=== PATIENT | female | born 1950 | race Caucasian/White ===

== ENCOUNTER 2020-09-28 23:45 | Inpatient (IN) ==
[2020-09-28] MEDS ORDERED: IOPAMIDOL 100 ML BOTTLE IV ONE (23:46)
[2020-09-29] MEDS ORDERED: 0.9 % SODIUM CHLORIDE 1,000 ML IV ONE (00:15)
[2020-09-29] MEDS ORDERED: ONDANSETRON 4 MG/2 ML VIAL IV ONE ×2 (00:15→07:31)
[2020-09-29] MEDS ORDERED: morphine 2 MG/ML VIAL IV PRN (00:15)
--- NOTE | 2020-09-29 00:19 | Emergency Department Note ---
Abdominal Pain HPI General Chief Complaint: Nausea/Vomiting/Diarrhea Stated Complaint: N/V/D Time Seen by Provider: 09/29/20 00:04 Source: patient, family ( at bedside) and RN notes reviewed Mode of arrival: ambulatory Limitations: no limitations History of Present Illness HPI Narrative: Narrative: 70-year-old female complaining of abdominal pain with nausea and vomiting. Started approximately 10 AM this morning she did some heavy lifting felt a pop in mass in her periumbilical area in her stomach. She thought it would get better throughout the course of the day and is gotten worse. Complains of naus ea and vomiting denies any hematemesis or coffee-ground emesis denies any bright red blood per rectum black tarry stools or diarrhea she does have constipation denies any hematuria dysuria frequency. MD Complaint: abdominal pain Onset (ago): hour(s) (12) Consistency: constant Location: periumbilical Severity: moderate Quality: cramping Radiation: back Migration to: no migration Improves with: vomiting Worsens with: eating and movement Associated symptoms: Reports nausea, chills, constipation and anorexia; Denies diarrhea, fever, dysuria, hematemesis, hematochezia, melena, hematuria and syncope Treatments prior to arrival: prescription analgesics Review of Systems ROS ROS Narrative: Narrative: [facility] Narrative Patient History Narrative: Narrative: Medical/Surgical/Family History All Active Problems (Updated 09/29/20 @ 02:24 by Familia Brito MD) Incarcerated hernia (Acute) Social History Smoking Status: Never smoker Exam Narrative Narrative: Narrative: General Limitations: no limitations Course Vital Signs Vital signs: Vital Signs Temperature 97.3 F 09/28/20 23:45 Pulse Rate 77 09/28/20 23:45 Respiratory Rate 15 09/28/20 23:45 Blood Pressure 175/92 09/28/20 23:45 Pulse Oximetry (%) 97 09/28/20 23:45 Temperature 97.3 F 09/28/20 23:45 Pulse Rate 71 09/29/20 01:10 Respiratory Rate 15 09/28/20 23:45 Blood Pressure 148/65 09/29/20 02:27 Pulse Oximetry (%) 95 09/29/20 01:10 [facility] MDM Narrative Medical decision making narrative: Narrative: Incarcerated ventral hernia on CT scan with elevated white count patient is to Dr. Teja Canseco. Differential Diagnosis Differential Diagnosis: Ventral hernia, umbilical hernia, mass. Medical Records Medical records reviewed: Yes I reviewed the patient's medical records. Lab Data Lab results reviewed: Yes I reviewed the patient's lab results. Result diagrams: 09/29/20 00:22 09/29/20 00:22 Labs: Lab Results 09/29/20 09/29/20 Range/Units 00:22 00:22 WBC 14.9 H (4.5-11.0) K/mcL RBC 5.41 H (4.00-5.20) M/mcL Hgb 16.6 H (12.0-15.0) g/dL Hct 49.8 H (36.0-48.0) % MCV 92.1 (80.0-100.0) fL MCH 30.7 (26.0-34.0) pg MCHC 33.3 (31.0-36.0) g/dL RDW 12.8 (11.5-14.5) % Plt Count 209 (140-440) K/mcL MPV 11.6 H (7.4-10.4) fL Neut % (Auto) 88.0 H (38.0-78.0) % Lymph % (Auto) 6.8 L (15.0-49.0) % [place] % (Auto) 5.0 (1.0-12.0) % Eos % (Auto) 0 (0.0-7.0) % Baso % (Auto) 0.2 (0.0-2.0) % Lymph # (Auto) 1.01 L (1.50-4.80) K/mcL [place] # (Auto) 0.74 (0.10-0.90) K/mcL Eos # (Auto) 0 (0.00-0.70) K/mcL Baso # (Auto) 0.03 (0.00-0.20) K/mcL Absolute Neutrophils 13.11 H (1.80-8.00) K/mcL Sodium 139 (133-145) mmol/L Potassium 3.4 (3.3-5.1) mmol/L Chloride 98 (96-108) mmol/L Carbon Dioxide 22 (22-30) mmol/L Anion Gap 19.0 H (8.0-16.0) BUN 22 (8-23) mg/dL Creatinine 0.7 (0.6-1.1) mg/dL POC Creatinine 0.6 (0.6-1.2) mg/dL GFR Calculation 88 Glucose 199 H (70-105) mg/dL Calcium 10.2 (8.6-10.4) mg/dL Total Bilirubin 1.2 H (0.1-1.0) mg/dL AST 24 (<32) U/L ALT 21 (<40) U/L Alkaline Phosphatase 100 (39-117) U/L Total Protein 7.6 (5.9-8.4) gm/dL Albumin 4.5 (3.2-5.2) gm/dL Globulin 3.1 (2.2-3.7) gm/dL Albumin/Globulin Ratio 1.5 (1.0-2.3) Lipase 11 (7-60) U/L Radiology Data Radiology results reviewed: Yes I reviewed the patient's radiology results. Radiology results narrative: Abdominal CT with a ventral hernia chest x-ray EKG Data EKG #1: EKG attestation: Yes I reviewed and interpreted this EKG. EKG shows normal: sinus rhythm Rate: normal (61) Rhythm: NSR Brooks/QRS: left axis deviation QRS morphology: Present poor R-wave progression Interpretation: nonspecific ST-T wave changes Pulse Oximetry Data Pulse Ox %: 95 Interpretation: 95% on room air and within normal limits. Discharge Plan Patient/Caregiver Discharge Instructions Pt seen by SYRUP MAKER/PA only: No Clinical Impression: Incarcerated hernia Patient Disposition: Xfer As Inpt ([facility]) Condition: Fair Follow up with: Angela Prado MD [Primary Care Provider] -
[2020-09-29 00:28] LABS: POC Creatinine 0.6 mg/dL (0.6-1.2)
[2020-09-29 00:49] LABS: Basophils # (Auto) 0.03 K/mcL (0.00-0.20); Basophils % (Auto) 0.2 % (0.0-2.0); Eosinophils # (Auto) 0 K/mcL (0.00-0.70); Eosinophils % (Auto) 0 % (0.0-7.0); Hematocrit 49.8 % (36.0-48.0); Hemoglobin 16.6 g/dL (12.0-15.0); Lymphocytes # (Auto) 1.01 K/mcL (1.50-4.80); Lymphocytes % (Auto) 6.8 % (15.0-49.0); Mean Cell Volume 92.1 fL (80.0-100.0); Mean Corpuscular HGB Conc 33.3 g/dL (31.0-36.0); Mean Platelet Volume 11.6 fL (7.4-10.4); Monocytes # (Auto) 0.74 K/mcL (0.10-0.90); Platelet Count 209 K/mcL (140-440); RBC 5.41 M/mcL (4.00-5.20); Red Cell Distribution Width 12.8 % (11.5-14.5); WBC 14.9 K/mcL (4.5-11.0)
[2020-09-29 01:12] LABS: ALT/SGPT 21 U/L (<40); AST/SGOT 24 U/L (<32); Albumin 4.5 gm/dL (3.2-5.2); Albumin/Globulin Ratio 1.5 (1.0-2.3); Alkaline Phosphatase 100 U/L (39-117); Bilirubin,Total 1.2 mg/dL (0.1-1.0); Blood Urea Nitrogen 22 mg/dL (8-23); Calcium 10.2 mg/dL (8.6-10.4); Carbon Dioxide 22 mmol/L (22-30); Chloride 98 mmol/L (96-108); Globulin 3.1 gm/dL (2.2-3.7); Glomerular Filtration Rate 88; Glucose 199 mg/dL (70-105)
[2020-09-29] MEDS ORDERED: HYDROmorphone 0.5 MG/0.5 ML SYRINGE IV ONE (02:08)
[2020-09-29] MEDS ORDERED: PROCHLORPERAZINE 10 MG/2 ML VIAL IV ONE (02:09)
[2020-09-29] MEDS ORDERED: diphenhydrAMINE 50 MG/ML VIAL IV ONE (02:09)
[2020-09-29] MEDS ORDERED: CEFEPIME 2 GM VIAL IV ONE (02:18)
[2020-09-29] MEDS ORDERED: HYDROmorphone 0.5 MG/0.5 ML SYRINGE IV PRN ×2 (02:18→14:45)
[2020-09-29] MEDS ORDERED: ONDANSETRON 4 MG/2 ML VIAL IV PRN (02:18)
[2020-09-29] MEDS: 0.9 % SODIUM CHLORIDE 1,000 ML IV SCH ×4 (03:00→22:41)
[2020-09-29 05:16] LABS: POC INR 1.1 (0.8-1.2); POC Pro Time 12.7 sec (11.9-14.5)
--- NOTE | 2020-09-29 06:00 | XRay Report ---
INDICATION: pre op. NG tube placement TECHNIQUE: AP portable supine chest x-ray COMPARISON: Previous chest x-ray dated 11/27/2009 FINDINGS:Esophagogastric tube with its tip in the stomach. Lungs:Bilateral pulmonary parenchymal infiltrates. This may be partially due to shallow inspiration and supine positioning. Interstitial pneumonia is possible. Clinical correlation follow-up radiographs recommended. Heart, vascular:No significant cardiomegaly. Pulmonary vascularity is normal. No pulmonary edema or pulmonary congestion Mediastinum, esperanza:No mediastinal widening. No hilar mass Pleura:There is elevation of the right hemidiaphragm. This is a new finding since previous examination. Skeletal:Negative. IMPRESSION: 1. Esophagogastric tube in stomach 2. Possible bilateral pulmonary parenchymal infiltrates. Follow-up chest x-ray recommended Interpreted and Authenticated by: Donta Grant 09/29/20
--- NOTE | 2020-09-29 07:10 | Cat Scan Report ---
INDICATION: Per umbilical mass, abd pain COMPARISON: None. TECHNIQUE: Axial images were obtained through the abdomen and pelvis. Sagittally and coronally reformatted images. 80 mL Isovue 370 injected intravenously. Oral contrast material was not administered FINDINGS: Examination was initially interpreted by [facility] Lung bases:Mild right basilar atelectasis. No parenchymal consolidation. No focal mass. There is no pleural effusion or pericardial effusion. There is extensive coronary artery calcification. Liver:Negative. No focal intrahepatic mass. No focal abnormality. Liver contour is smooth. No evidence for cirrhosis Gallbladder, bilary:No calcified gallstones. No gallbladder wall thickening. No dilated intra or extrahepatic bile ducts. Spleen:No splenomegaly. Normal enhancement of splenic and portal veins. Pancreas:No pancreatic mass. No peripancreatic abnormality Adrenal glands:Negative Kidneys, ureters, bladder:No solid renal mass. No hydronephrosis. No obstructing calculi. There is no hydroureter. No ureteral stone No bladder calculi or detectable mass Gastrointestinal:No detectable colonic mass. There is no diverticulitis. There is sigmoid diverticulosis. The colon is relatively collapsed but does contain stool. Mechanical small bowel obstruction with dilated jejunum. Approximately 3.0 cm in cross-sectional diameter and is fluid-filled there are 2 supraumbilical midline abdominal wall hernias. The more cephalad hernia measures 1.6 x 2.5 cm in diameter. There is mesenteric fat within the hernia. There is mild stranding. This does not contain bowel. The more caudal hernia is immediately adjacent to the other hernia. This hernia defect measures 2.5 x 1.6 cm. There is herniated and obstructed small bowel. There is stranding and mild fluid. Small bowel wall appears edematous but enhances normally without evidence for infarction. Appearance is consistent with incarcerated, mechanical small bowel obstruction. Appendix: The appendix is negative Vascular:There is atherosclerotic calcification. No abdominal aortic aneurysm. There is calcification at the origins of the superior mesenteric artery and celiac trunk. There is no significant stenosis Lymphatic:No retroperitoneal or mesenteric adenopathy Mesentery, peritoneum: No free intraperitoneal fluid. There is no pneumoperitoneum. No intra-abdominal abscess. Reproductive:Uterus is anteflexed. No adnexal mass Musculoskeletal:Severe multilevel degenerative disc disease. There is degenerative type scoliosis. No lumbar compression fracture. Sacrum and pelvis are negative No abdominal wall or inguinal hernia IMPRESSION: 1. Midline anterior abdominal wall hernias as above 2. Mechanical small bowel obstruction with incarcerated small bowel. There is fluid within the hernia sac. There is small bowel edema within the hernia sac but small bowel wall appears perfused. 3. Severe atherosclerotic disease including coronary artery calcification. No abdominal aortic aneurysm 4. Severe multilevel degenerative disc disease 5. Diverticulosis without diverticulitis The exam was performed using radiation dose optimization techniques including, but not limited to, automated exposure control, adjustment of the mA and/or kV according to patient size and use of iterative reconstruction technique. Interpreted and Authenticated by: Donta Grant 09/29/20
--- NOTE | 2020-09-29 07:37 | Emergency Department Note ---
Nausea/Vomiting/Diarrhea HPI General Chief complaint: Nausea/Vomiting/Diarrhea Stated complaint: N/V/D Time Seen by Provider: 09/29/20 00:04 Source: patient, family ( at bedside) and RN notes reviewed Mode of arrival: ambulatory Limitations: no limitations History of Present Illness HPI Narrative: Narrative: Severity: moderate Related Data Home Medications Medication Instructions Recorded Confirmed calcium carbonate-vitamin D2 1 tab PO DAILY 09/29/20 09/29/20 [Calcium + Vitamin D] cyanocobalamin (vitamin B-12) 500 mcg PO DAILY 09/29/20 09/29/20 [Vitamin B-12] ibuprofen 200 mg PO Q6H PRN 09/29/20 09/29/20 losartan 25 mg PO QDAY 09/29/20 09/29/20 pediatric multivitamin no.76 2 tab PO DAILY 09/29/20 09/29/20 [Flintstones Complete] Allergies Allergy/AdvReac Type Severity Reaction Status Date / Time No Known Drug Allergies Allergy Verified 09/29/20 03:50 Review of Systems ROS ROS Narrative: Narrative: PFSH Narrative Patient History Narrative: Narrative: Medical/Surgical/Family History All Active Problems (Updated 09/29/20 @ 09:40 by Enrrique Canseco MD) Complete obstruction of small intestine (Acute) Incarcerated incisional hernia (Acute) Hypertension (Acute) Incarcerated hernia (Acute) Surgical History (Updated 09/29/20 @ 09:37 by Enrrique Canseco MD) History of total knee arthroplasty Social History Smoking Status: Never smoker Exam Narrative Narrative: Narrative: General Limitations: no limitations Course Vital Signs Vital signs: Vital Signs Temperature 97.3 F 09/28/20 23:45 Pulse Rate 77 09/28/20 23:45 Respiratory Rate 15 09/28/20 23:45 Blood Pressure 175/92 09/28/20 23:45 Pulse Oximetry (%) 97 09/28/20 23:45 Temperature 97.3 F 09/29/20 11:06 Pulse Rate 95 H 09/29/20 11:06 Respiratory Rate 15 09/29/20 11:06 Blood Pressure 154/72 09/29/20 11:06 Pulse Oximetry (%) 94 09/29/20 11:06 [facility] MDM Narrative Medical decision making narrative: I assumed care from Dr. Brito at the change of shift. I evaluated the patient in person at 7:35 AM. She is complaining of increasing nausea and pain. We will administer Zofran for nausea. She declined any pain medication at this time. I explained the plan for surgical consultation in the emergency department and the patient is agreeable. We will continue to monitor Lab Data Result diagrams: 09/29/20 00:22 09/29/20 00:22 Labs: Lab Results 09/29/20 09/29/20 09/29/20 Range/Units : 00:22 05:11 WBC 14.9 H (4.5-11.0) K/mcL RBC 5.41 H (4.00-5.20) M/mcL Hgb 16.6 H (12.0-15.0) g/dL Hct 49.8 H (36.0-48.0) % MCV 92.1 (80.0-100.0) fL MCH 30.7 (26.0-34.0) pg MCHC 33.3 (31.0-36.0) g/dL RDW 12.8 (11.5-14.5) % Plt Count 209 (140-440) K/mcL MPV 11.6 H (7.4-10.4) fL Neut % (Auto) 88.0 H (38.0-78.0) % Lymph % (Auto) 6.8 L (15.0-49.0) % [place] % (Auto) 5.0 (1.0-12.0) % Eos % (Auto) 0 (0.0-7.0) % Baso % (Auto) 0.2 (0.0-2.0) % Lymph # (Auto) 1.01 L (1.50-4.80) K/mcL [place] # (Auto) 0.74 (0.10-0.90) K/mcL Eos # (Auto) 0 (0.00-0.70) K/mcL Baso # (Auto) 0.03 (0.00-0.20) K/mcL Absolute Neutrophils 13.11 H (1.80-8.00) K/mcL POC PT 12.7 (11.9-14.5) sec POC INR 1.1 (0.8-1.2) Sodium 139 (133-145) mmol/L Potassium 3.4 (3.3-5.1) mmol/L Chloride 98 (96-108) mmol/L Carbon Dioxide 22 (22-30) mmol/L Anion Gap 19.0 H (8.0-16.0) BUN 22 (8-23) mg/dL Creatinine 0.7 (0.6-1.1) mg/dL POC Creatinine 0.6 (0.6-1.2) mg/dL GFR Calculation 88 Glucose 199 H (70-105) mg/dL Calcium 10.2 (8.6-10.4) mg/dL Total Bilirubin 1.2 H (0.1-1.0) mg/dL AST 24 (<32) U/L ALT 21 (<40) U/L Alkaline Phosphatase 100 (39-117) U/L Total Protein 7.6 (5.9-8.4) gm/dL Albumin 4.5 (3.2-5.2) gm/dL Globulin 3.1 (2.2-3.7) gm/dL Albumin/Globulin Ratio 1.5 (1.0-2.3) Lipase 11 (7-60) U/L ED POC Tests ED POC Tests: NANCY - SARS Antigen Negative Discharge Plan Patient/Caregiver Discharge Instructions Pt seen by COMMUNITY INTEGRATION SPECIALIST/PA only: No Clinical Impression: Incarcerated hernia Patient Disposition: Xfer As Inpt ([facility]) Condition: Fair Discharge Date/Time: 09/29/20 11:12
--- NOTE | 2020-09-29 09:41 | General Surg History&Physical ---
HPI History of Present Illness Patient information: Note initiated : 09/29/20 at 9:31 am Service Date, if different from initiated Date: [] Patient: Shanelle Cai a 70 y/o F admitted on for N/V/D. Chief Complaint: [] Chief complaint: Incarcerated incisional hernia with small bowel obstruction History of present illness: Ms. Cai is a 70 year old F admitted with mid upper abdominal pain with nausea and vomiting. 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 She had new onset of pain in her mid abdomen around one of her port sites about 11 AM yesterday. She has had progressive pain since that time and has had episodic nausea and vomiting. She presented to the emergency room early this morning with these complaints. She had CT of the abdomen which shows an incisional hernia in the upper midline with incarcerated bowel and fat. She has been treated with nasogastric decompression and has mild relief of discomfort but has not had any resolution of the nausea or vomiting. Patient is counseled for exploratory laparotomy with reduction incarcerated bowel and incisional hernia repair. Review of Systems All systems: reviewed and no additional remarkable complaints except as stated Musculoskeletal Musculoskeletal: Present arthralgias and joint swelling PFSH PFSH All Active Problems (Updated 09/29/20 @ 09:40 by Enrrique Canseco MD) Complete obstruction of small intestine (Acute) Incarcerated incisional hernia (Acute) Hypertension (Acute) Incarcerated hernia (Acute) Surgical History (Updated 09/29/20 @ 09:37 by Enrrique Canseco MD) History of total knee arthroplasty MEDS/ALLERGIES Home Medications and Allergies Home Medications Medication Instructions Recorded Confirmed Type calcium carbonate-vitamin D2 1 tab PO DAILY 09/29/20 09/29/20 History [Calcium + Vitamin D] cyanocobalamin (vitamin B-12) 500 mcg PO DAILY 09/29/20 09/29/20 History [Vitamin B-12] ibuprofen 200 mg PO Q6H PRN 09/29/20 09/29/20 History losartan 25 mg PO QDAY 09/29/20 09/29/20 History pediatric multivitamin no.76 2 tab PO DAILY 09/29/20 09/29/20 History [Flintstones Complete] Allergies Allergy/AdvReac Type Severity Reaction Status Date / Time No Known Drug Allergies Allergy Verified 09/29/20 03:50 Physical Examination Vital Signs Vital signs: Temp Pulse Resp BP Pulse Ox 97.3 F 85 15 154/79 94 09/28/20 23:45 09/29/20 09:08 09/28/20 23:45 09/29/20 09:08 09/29/20 09:08 General physical appearance General physical exam: well developed, well nourished, moderate pain and obese Eyes Eye exam: PERRL and normal ocular movement ENT ENT exam: normal mucosa and no congestion Head Head exam IM: Present atraumatic, normal inspection and normocephalic Neck Neck exam: no masses, trachea midline, no lymphadenopathy and no venous distension Cardiovascular Cardiovascular exam IM: Present normal rate and rhythm, RRR, +S1, +S2 and tachycardia; Absent JVD Respiratory Respiratory exam: normal expansion, normal respiratory effort and clear to auscultation Abdomen Abdomen: Present soft and tender (Tenderness in the supraumbilical midline with tender mass) Hernia: Present incisional Integumentary Integumentary: Present no rash, no growths and no abnormal pigmentation Neurologic Neurologic: Present normal coordination and normal sensation Musculoskeletal Musculoskeletal: Present normal gait and normal posture Psychiatric Psychiatric: Present oriented to time, oriented to person, oriented to place, speech is normal and memory intact Results Labs Result diagrams: 09/29/20 00:22 09/29/20 00:22 Labs: Abnormal lab results 09/29/20 09/29/20 Range/Units 00:22 00:22 WBC 14.9 H (4.5-11.0) K/mcL RBC 5.41 H (4.00-5.20) M/mcL Hgb 16.6 H (12.0-15.0) g/dL Hct 49.8 H (36.0-48.0) % MPV 11.6 H (7.4-10.4) fL Neut % (Auto) 88.0 H (38.0-78.0) % Lymph % (Auto) 6.8 L (15.0-49.0) % Lymph # (Auto) 1.01 L (1.50-4.80) K/mcL Absolute Neutrophils 13.11 H (1.80-8.00) K/mcL Anion Gap 19.0 H (8.0-16.0) Glucose 199 H (70-105) mg/dL Total Bilirubin 1.2 H (0.1-1.0) mg/dL Diabetes panel 09/29/20 Range/Units 00:22 Sodium 139 (133-145) mmol/L Potassium 3.4 (3.3-5.1) mmol/L Chloride 98 (96-108) mmol/L Carbon Dioxide 22 (22-30) mmol/L BUN 22 (8-23) mg/dL Creatinine 0.7 (0.6-1.1) mg/dL Glucose 199 H (70-105) mg/dL Calcium 10.2 (8.6-10.4) mg/dL AST 24 (<32) U/L ALT 21 (<40) U/L Alkaline Phosphatase 100 (39-117) U/L Total Protein 7.6 (5.9-8.4) gm/dL Albumin 4.5 (3.2-5.2) gm/dL Calcium panel 09/29/20 Range/Units 00:22 Calcium 10.2 (8.6-10.4) mg/dL Albumin 4.5 (3.2-5.2) gm/dL Pituitary panel 09/29/20 Range/Units 00:22 Sodium 139 (133-145) mmol/L Potassium 3.4 (3.3-5.1) mmol/L Chloride 98 (96-108) mmol/L Carbon Dioxide 22 (22-30) mmol/L BUN 22 (8-23) mg/dL Creatinine 0.7 (0.6-1.1) mg/dL Glucose 199 H (70-105) mg/dL Calcium 10.2 (8.6-10.4) mg/dL Adrenal panel 09/29/20 Range/Units 00:22 Sodium 139 (133-145) mmol/L Potassium 3.4 (3.3-5.1) mmol/L Chloride 98 (96-108) mmol/L Carbon Dioxide 22 (22-30) mmol/L BUN 22 (8-23) mg/dL Creatinine 0.7 (0.6-1.1) mg/dL Glucose 199 H (70-105) mg/dL Calcium 10.2 (8.6-10.4) mg/dL Total Bilirubin 1.2 H (0.1-1.0) mg/dL AST 24 (<32) U/L ALT 21 (<40) U/L Alkaline Phosphatase 100 (39-117) U/L Total Protein 7.6 (5.9-8.4) gm/dL Albumin 4.5 (3.2-5.2) gm/dL All other labs normal. A/P Assessment and plan (1) Incarcerated incisional hernia: Status: Acute (2) Complete obstruction of small intestine: Status: Acute (3) Hypertension: Status: Acute Narrative A/P Narrative: Patient is being hydrated She has received antibiotics She is counseled for laparotomy with reduction of bowel obstruction and repair of incisional hernia She is having nasogastric decompression Time Spent With Patient Time: Total time spent is greater than 50% in coordination of care (as documented) at patient's floor/unit and/or counseling patient:
[2020-09-29] MEDS ORDERED: CEFEPIME 2 GM VIAL IV SCH (10:00)
[2020-09-29] MEDS ORDERED: fentaNYL 100 MCG/2 ML VIAL IV ONE (13:33)
[2020-09-29] MEDS ORDERED: PROPOFOL 200 MG/20 ML VIAL IV ONE (13:33)
[2020-09-29] MEDS ORDERED: LIDOCAINE HCL/PF 100 MG/5 ML SYRINGE IV ONE (13:33)
[2020-09-29] MEDS ORDERED: GLYCOPYRROLATE 0.2 MG/ML VIAL IV ONE (13:33)
[2020-09-29] MEDS ORDERED: ONDANSETRON 4 MG/2 ML VIAL ONE (13:33)
[2020-09-29] MEDS ORDERED: DEXAMETHASONE 10 MG/ML VIAL ONE (13:33)
[2020-09-29] MEDS ORDERED: PHENYLephrine 1 MG/10 ML SYRINGE (ANEST) ONE (13:33)
[2020-09-29] MEDS ORDERED: SUGAMMADEX SODIUM 200 MG/2 ML VIAL IV ONE (13:33)
[2020-09-29] MEDS ORDERED: KETAMINE 50 MG/ML Syringe (ANEST) ONE (13:33)
[2020-09-29] MEDS ORDERED: SUCCINYLCHOLINE 20 MG/ML ML IV ONE (13:33)
[2020-09-29] MEDS ORDERED: MAGNESIUM SULFATE 2 GM/50 ML BAG IV ONE (13:33)
[2020-09-29] MEDS ORDERED: HYDROmorphone 1 MG/ML SYRINGE ONE (13:33)
--- NOTE | 2020-09-29 13:44 | EKG ---
[facility] Test Date: 2020-09-29 Pat Name: Shanelle Cai Department: ED Room: Gender: Female [employer] Supervisor: : 1950 Requested By: Familia Brito Order Number: [id number] Reading MD: Willie Contreras M.D. Measurements Intervals [place] Rate: 61 P: 12 MD: 174 QRS: -31 QRSD: 101 T: 4 QT: 419 QTc: 422 Interpretive Statements Sinus rhythm borderline Left axis deviation Abnormal R-wave progression, late transition NO PRIOR TRACING FOR COMPARISON OTHERWISE NORMAL ECG Electronically Signed On 09-29-2020 13:44:07 PDT by Willie Contreras M.D. /store/M0/[id number]
[2020-09-29] MEDS ORDERED: VANCOMYCIN 1 GM VIAL TOPICAL SCH (14:30)
[2020-09-29] MEDS ORDERED: GENTAMICIN SULFATE 800 MG/20 ML VIAL IR ONE (14:30)
--- NOTE | 2020-09-29 14:40 | Brief Operative Note ---
Brief Operative Note Date of procedure: 09/29/20 Pre-op diagnosis: incisional hernia with small bowel obstruction Post-op diagnosis: other (incisional hernia with small bowel obstruction) Procedure: EXPLORATORY LAPAROTOMY WITH INCISIONAL HERNIA REPAIR Grafts/Implants: No Anesthesia: GETA Findings: 2 MAJOR FASCIAL DEFECTS WITH INCARCERATED OMENTUM AND SMALL BOWEL LOOP; THE BOWEL HAD VENOUS CONGESTION BUT MAINTAINED ARTERIAL BLOOD SUPPLY; IT READILY PINKED UP AFTER THE CONSTRICTION WAS RELEASED LARGE VOLUME OF HEMORRHAGIC FLUID IN HERNIA SAC Complications: none Surgeon: Enrrique Canseco Estimated blood loss (cc): 20 Specimens Removed/Pathology: none sent Condition: stable Disposition: PACU
[2020-09-29] MEDS ORDERED: BENZOCAINE/MENTHOL 1 LOZENGE PO PRN (14:45)
[2020-09-29] MEDS ORDERED: ACETAMINOPHEN 1,000 MG/100 ML BAG IV ONE (14:45)
[2020-09-29] MEDS ORDERED: MEPERIDINE 25 MG/ML VIAL IV PRN (14:45)
[2020-09-29] MEDS ORDERED: IPRATROPIUM/ALBUTEROL 3 ML AMPUL.NEB NEB PRN (14:45)
[2020-09-29] MEDS ORDERED: LABETALOL 5 MG/ML ML IV PRN (14:45)
[2020-09-29] MEDS ORDERED: METOPROLOL TARTRATE 5 MG/5 ML VIAL IV PRN (14:45)
[2020-09-29] MEDS ORDERED: LACTATED RINGERS 1,000 ML IV SCH (14:45)
[2020-09-29] MEDS ORDERED: NALOXONE HCL 0.4 MG/ML VIAL IV PRN (14:45)
[2020-09-29] MEDS ORDERED: LACTATED RINGERS 250 ML IV PRN (14:45)
[2020-09-29] MEDS ORDERED: fentaNYL 100 MCG/2 ML VIAL IV PRN (14:45)
[2020-09-29] MEDS ORDERED: IOPAMIDOL 100 ML BOTTLE IV ONE (15:27)
[2020-09-29] MEDS: ACETAMINOPHEN 1,000 MG/100 ML BAG IV SCH ×2 (15:55→22:47)
[2020-09-29] MEDS: CEFEPIME 2 GM VIAL IV SCH (17:07)
[2020-09-30] MEDS: CEFEPIME 2 GM VIAL IV SCH ×4 (00:58→21:08)
[2020-09-30] MEDS: ACETAMINOPHEN 1,000 MG/100 ML BAG IV SCH ×3 (05:35→08:37)
[2020-09-30] MEDS: 0.9 % SODIUM CHLORIDE 1,000 ML IV SCH ×4 (06:50→21:14)
[2020-09-30] MEDS: ONDANSETRON 4 MG/2 ML VIAL IV PRN (10:26)
--- NOTE | 2020-09-30 11:57 | General Surgery Progress Note ---
SUBJECTIVE Subjective Patient information: Note initiated : 09/30/20 at 11:53 am Service Date, if different from initiated Date: [] Patient: Shanelle Cai 70 y/o F admitted on for N/V/D. Chief Complaint: [] Principal diagnosis: Incisional hernia with incarcerated small bowel Interval history: Patient states that she feels better. She denies nausea. Her nasogastric tube output is of small volume. She has not had flatus. Constitutional Vitals: Vital Signs Temp Pulse Resp BP Pulse Ox 98.8 F 68 16 146/79 94 09/30/20 09:13 09/30/20 09:13 09/30/20 09:13 09/30/20 09:13 09/30/20 09:13 Period Temp Pulse Resp BP Sys/[place] Pulse Ox Last 24 Hr 98.1 F-99.6 F 68-90 15-18 128-147/69-82 93-99 Intake and Output 09/29/20 09/30/20 09/30/20 21:59 05:59 13:59 Intake Total 1200 1530 100 Output Total 250 600 Balance 950 930 100 Weight 207 lb 207 lb Patient Weight 10/01/20 05:59 Weight 207 lb Intake & Output: Intake & Output 09/29/20 09/30/20 09/30/20 21:59 05:59 13:59 Intake Total 1200 1530 100 Output Total 250 600 Balance 950 930 100 Weight 207 lb 207 lb Intake: IV 100 1530 100 Sodium Chloride 0.9% 1,000 ml @ 1430 0 150 mls/hr IV .[id number] [facility] Rx#: [id number] IV - Manual Only 1100 Output: Urine Catheter Amount 200 600 Estimated Blood Loss 50 Other: Urine Appearance Clear Clear Clear Uretheral (Mcdonald) Clear Clear Clear Urine Color Dark Yellow Dark Yellow Dark Yellow Uretheral (Mcdonald) Dark Yellow Dark Yellow Straw Urine Odor Normal Normal Uretheral (Mcdonald) Normal Normal Eye Eye exam: Present EOMI and PERRL Pupils: Present normal accommodation ENT ENT exam: Present mucous membranes moist, normal exam and normal oropharynx Neck Neck exam: Present full ROM and normal inspection; Absent lymphadenopathy and tenderness Respiratory Respiratory exam: Present normal respiratory exam and CTAB; Absent respiratory d istress Cardiovascular Cardiovascular exam: Present normal rate and rhythm, RRR, +S1 and +S2; Absent JV D GI/Abdominal GI/Abdominal exam: Present normal bowel sounds, soft, distended (Mildly distended but with active bowel sounds) and tenderness (Mild incisional tenderness) Extremities Exam Extremities exam: Present full ROM, normal inspection and neurovascular intact Neurological Exam Neurological exam: Present alert, normal gait and reflexes normal Psychiatric Psychiatric exam: Present anxious, normal affect and normal mood A/P Assessment and plan (1) Incarcerated incisional hernia: Status: Acute (2) Complete obstruction of small intestine: Status: Acute (3) Hypertension: Status: Acute Narrative A/P Narrative: Clamp nasogastric tube Discontinue Mcdonald catheter CBC and inpatient panel in the a.m. 2 view abdominal x-ray today and in the a.m. Time Spent With Patient Time: Total time spent is greater than 50% in coordination of care (as documented) at patient's floor/unit and/or counseling patient:
--- NOTE | 2020-09-30 12:31 | XRay Report ---
INDICATION: FOR F/U OF ILEUS TECHNIQUE: Supine abdomen. COMPARISON: Preoperative CT scan dated 09/29/2020 FINDINGS:There is an esophagogastric tube with its tip in the distal stomach. There are skin jon in a vertical midline incision. There is a distended gas-filled small bowel which is predominantly left-sided. This measures 4 cm in cross-sectional diameter. There is gas and fecal material within the colon. Distended gas filled small bowel may represent postoperative ileus. Continued follow-up recommended. IMPRESSION: 1. Esophagogastric tube in the stomach 2. Distended gas-filled small bowel in the left side of the abdomen may represent postoperative ileus. There is gas and fecal material within the colon 3. Follow-up radiographs recommended Interpreted and Authenticated by: Donta Grant 09/30/20
[2020-09-30] MEDS: HYDROmorphone 0.5 MG/0.5 ML SYRINGE IV PRN (19:03)
[2020-10-01] MEDS: HYDROmorphone 0.5 MG/0.5 ML SYRINGE IV PRN ×3 (01:07→11:10)
[2020-10-01] MEDS: ONDANSETRON 4 MG/2 ML VIAL IV PRN (01:20)
[2020-10-01] MEDS: 0.9 % SODIUM CHLORIDE 1,000 ML IV SCH ×3 (01:48→14:06)
[2020-10-01] MEDS: CEFEPIME 2 GM VIAL IV SCH ×2 (05:30→13:43)
--- NOTE | 2020-10-01 05:59 | XRay Report ---
INDICATION: Follow-up of ileus TECHNIQUE: Supine abdomen. COMPARISON: Preoperative CT scan dated 09/29/2020. Postoperative plain film examination dated 09/30/2020 FINDINGS:Esophagogastric tube remains in appropriate position for stomach. There are skin jon in a vertical midline incision in the lower abdomen and pelvis There continues to be gas and fecal material within the colon. Small bowel remains dilated and measures approximately 4.5 cm in cross-sectional diameter. Findings may be secondary to ileus. Residual obstruction is not excluded and continued follow-up is recommended. There is no pneumatosis. No biliary or portal venous gas. 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 Persistent gas-filled dilated small bowel. Findings may BE due to ileus but persistent obstruction is possible. 2. There is gas and fecal material within the colon 3. No significant interval change since 09/30/2020 Interpreted and Authenticated by: Donta Grant 10/01/20
[2020-10-01 07:06] LABS: Basophils # (Auto) 0.06 K/mcL (0.00-0.20); Basophils % (Auto) 0.8 % (0.0-2.0); Eosinophils # (Auto) 0.07 K/mcL (0.00-0.70); Eosinophils % (Auto) 0.9 % (0.0-7.0); Hematocrit 43.4 % (36.0-48.0); Hemoglobin 13.6 g/dL (12.0-15.0); Lymphocytes # (Auto) 1.04 K/mcL (1.50-4.80); Mean Cell Volume 97.7 fL (80.0-100.0); Mean Corpuscular HGB Conc 31.3 g/dL (31.0-36.0); Mean Platelet Volume 11.1 fL (7.4-10.4); Monocytes # (Auto) 1.08 K/mcL (0.10-0.90); Monocytes % (Auto) 13.5 % (1.0-12.0); Neutrophils % (Auto) 71.8 % (38.0-78.0); Platelet Count 158 K/mcL (140-440); RBC 4.44 M/mcL (4.00-5.20); Red Cell Distribution Width 13.1 % (11.5-14.5)
[2020-10-01 07:16] LABS: ALT/SGPT 12 U/L (<40); AST/SGOT 14 U/L (<32); Albumin 2.7 gm/dL (3.2-5.2); Albumin/Globulin Ratio 0.9 (1.0-2.3); Alkaline Phosphatase 59 U/L (39-117); Bilirubin,Direct < 0.2 mg/dL (0-0.3); Bilirubin,Total 0.4 mg/dL (0.1-1.0); Blood Urea Nitrogen 20 mg/dL (8-23); Calcium 8.5 mg/dL (8.6-10.4); Carbon Dioxide 22 mmol/L (22-30); Chloride 109 mmol/L (96-108); Globulin 2.9 gm/dL (2.2-3.7); Glomerular Filtration Rate 98; Glucose 104 mg/dL (70-105); Lactate Dehydrogenase 173 U/L (135-225); Phosphorous 1.7 mg/dL (2.5-4.5); Triglycerides 75 mg/dL (<150)
--- NOTE | 2020-10-01 09:26 | Operative Note ---
DATE OF OPERATION: 09/29/2020 PREOPERATIVE DIAGNOSES: Incisional hernia with small-bowel obstruction. POSTOPERATIVE DIAGNOSES: Incisional hernia with small-bowel obstruction and incarceration. PROCEDURE: Exploratory laparotomy with incisional hernia repair. SURGEON: Enrrique Canseco M.D. FINDINGS: Two major fascial defects in the upper midline with one defect containing incarcerated omentum and another defect containing a significant loop of small bowel. The bowel had major venous congestion, but maintained good arterial blood supply. It readily pinked up after the constriction was released. There was a large volume of hemorrhagic fluid in the hernia sac. DESCRIPTION OF PROCEDURE: Under general anesthesia, the patient's abdomen was prepped and draped in a sterile field. An upper midline supraumbilical incision was made over the bulging mass. In the subcutaneous tissue, there were two hernia sacs. One contained what appeared to be omentum and the other contained a large volume of fluid with small bowel. The dissection was continued down to the neck of each of the sacs. The omental sac was incised and then the midline was more superiorly to allow the omentum to be pushed back into the peritoneal cavity. It was totally viable. There was another constricting band between that sac and the lower sac which was immediately supraumbilical. This band was released and the sac was removed. There was a large volume of bloody, turbid fluid in the sac. This was suctioned and irrigated. The bowel was congested, but after releasing the constriction at the neck, the arterial supply was maintained and the bowel immediately pinked up and the severe congestion cleared. The bowel had excellent peristalsis and there were no areas where it appeared that the wall of the bowel was dilated. After monitoring the bowel for about 2 to 3 minutes and being confirmed that the bowel was viable, it was pushed back into the peritoneal cavity. Irrigation was carried out. Because of the large amount of turbid fluid in the sac, it was elected not to do a mesh graft repair. The edges of the fascia were incised until good fascia was obtained. The defect was then closed with multiple [id number] sutures of #1 Prolene. Good repair was obtained. More irrigation was carried out and the subcutaneous tissue was closed with 2-0 Monocryl. Skin was closed with jon. The patient tolerated the procedure well. She was awakened and transferred to the postanesthetic care unit in stable, satisfactory condition. LCS:rhonda Job ID: [id number] Doc ID: [id number] Enrrique Canseco M.D.
[2020-10-01] MEDS: METOCLOPRAMIDE 10 MG/2 ML VIAL IV SCH ×3 (12:10→23:56)
[2020-10-01] MEDS ORDERED: POTASSIUM PHOSPHATE 40 MEQ in DEXTROSE 5% IN WATER 500 ML IV ONE (13:00)
--- NOTE | 2020-10-01 13:47 | General Surgery Progress Note ---
SUBJECTIVE Subjective Patient information: Note initiated : 10/01/20 at 1:43 pm Service Date, if different from initiated Date: [] Patient: Shanelle Cai 70 y/o F admitted on for N/V/D. Chief Complaint: [] Principal diagnosis: Incisional hernia with incarcerated small bowel Interval history: Patient has mild nausea. Her nasogastric tube was clamped last evening and she has had progressive distention of her small bowel compatible with ileus. NG tube is adequately positioned but is not on suction. She has prominent dilation of the small bowel with very mild amount of gas and stool in the colon. She has not had ileus or bowel movement. Constitutional Vitals: Vital Signs Temp Pulse Resp BP Pulse Ox 97.4 F 74 18 134/72 95 10/01/20 11:44 10/01/20 11:44 10/01/20 11:44 10/01/20 11:44 10/01/20 11:44 Period Temp Pulse Resp BP Sys/Mantilla Pulse Ox Last 24 Hr 97.4 F-99.0 F 63-74 16-18 134-153/71-82 93-95 Intake and Output 09/30/20 10/01/20 10/01/20 21:59 05:59 13:59 Intake Total 1000 1000 1000 Output Total 501 Balance 499 1000 1000 Intake & Output: Intake & Output 09/30/20 10/01/20 10/01/20 21:59 05:59 13:59 Intake Total 1000 1000 1000 Output Total 501 Balance 499 1000 1000 Intake: IV 1000 1000 1000 Sodium Chloride 0.9% 1,000 ml @ 1000 1000 1000 150 mls/hr IV .Q6H40M [facility] [place] Rx#: [id number] Output: Urine Catheter Amount 500 # of times incontinent of urine 1 Other: Urine Appearance Clear Urine Color Dark Yellow Urine Odor Normal # Voids 1 Head Head exam: Present atraumatic, normal inspection and normocephalic Eye Eye exam: Present EOMI and PERRL Pupils: Present normal accommodation ENT ENT exam: Present mucous membranes moist, normal exam and normal oropharynx Neck Neck exam: Present full ROM and normal inspection; Absent lymphadenopathy and tenderness Respiratory Respiratory exam: Present normal respiratory exam and CTAB; Absent respiratory distress Cardiovascular Cardiovascular exam: Present normal rate and rhythm, RRR, +S1 and +S2; Absent JVD GI/Abdominal GI/Abdominal exam: Present normal bowel sounds, soft, distended (Mildly distended but with active bowel sounds) and tenderness (Mild incisional tenderness) Extremities Exam Extremities exam: Present full ROM, normal inspection and neurovascular intact Neurological Exam Neurological exam: Present alert, normal gait and reflexes normal Psychiatric Psychiatric exam: Present agitated Skin Skin exam: Present intact and normal color A/P Assessment and plan (1) Incarcerated incisional hernia: Status: Acute (2) Complete obstruction of small intestine: Status: Acute (3) Hypertension: Status: Acute Qualifiers: Hypertension type: primary hypertension Qualified Code(s): I10 - Essential (primary) hypertension Narrative A/P Narrative: Nasogastric tube to moderate intermittent suction Reglan 10 mg IV every 6 hours K-Phos. Brandon 40 mEq IV now Follow-up abdominal x-rays in the morning Time Spent With Patient Time: Total time spent is greater than 50% in coordination of care (as documented) at patient's floor/unit and/or counseling patient:
[2020-10-01] MEDS ORDERED: ACETAMINOPHEN 1,000 MG/100 ML BAG IV PRN (17:51)
[2020-10-01] MEDS: HYDROmorphone 1 MG/ML SYRINGE IV PRN (18:01)
[2020-10-02] MEDS: HYDROmorphone 1 MG/ML SYRINGE IV PRN ×2 (02:58→09:58)
[2020-10-02] MEDS: METOCLOPRAMIDE 10 MG/2 ML VIAL IV SCH ×4 (06:06→23:46)
--- NOTE | 2020-10-02 09:27 | XRay Report ---
INDICATION: FOLLOW -UP OF SMALL BOWEL OBSTRUCTION TECHNIQUE: Supine and upright abdomen. COMPARISON: Previous examinations dated 10/01/2020, 09/30/2020 FINDINGS:Esophagogastric tube with its tip in the stomach Bowel gas pattern is improved. There is increased colonic gas. There is persistent small bowel prominence with mild gaseous distention but this is improved since 10/01/2020. Findings are consistent with resolving ileus IMPRESSION: Improved bowel gas pattern. Interpreted and Authenticated by: Donta Grant 10/02/20
--- NOTE | 2020-10-02 13:43 | General Surgery Progress Note ---
SUBJECTIVE Subjective Patient information: Note initiated : 10/02/20 at 1:41 pm Service Date, if different from initiated Date: [] Patient: Shanelle Cai 70 y/o F admitted on 09/29/20 for N/V/D. Chief Complaint: [] Principal diagnosis: Incisional hernia with incarcerated small bowel Interval history: Patient is clinically improved. She is passed copious flatus and had 2 bowel movements. She has less abdominal distention. She denies nausea. Her incision is unremarkable Constitutional Vitals: Vital Signs Temp Pulse Resp BP Pulse Ox 96.7 F L 95 H 16 144/67 95 10/02/20 08:00 10/02/20 08:00 10/02/20 08:00 10/02/20 08:00 10/02/20 08:00 Period Temp Pulse Resp BP Sys/Mantilla Pulse Ox Last 24 Hr 96.7 F-98.7 F 61-95 16-18 144-152/67-79 92-95 Intake and Output 10/01/20 10/02/20 10/02/20 21:59 05:59 13:59 Intake Total 1629.0909 100 Balance 1629.0909 100 Weight 207 lb Intake & Output: Intake & Output 10/01/20 10/02/20 10/02/20 21:59 05:59 13:59 Intake Total 1629.0909 100 Balance 1629.0909 100 Weight 207 lb Intake: IV 1509.0909 Sodium Chloride 0.9% 1,000 ml @ 1000 150 mls/hr IV .Q6H40M [facility] Rx#: [id number] Potassium Phosphate 40 Meq In 509.0909 Dextrose 5% in Water 500 ml @ 127.273 mls/hr IV ONCE ONE Rx#: [id number] Oral 120 100 Other: Urine Appearance Clear Urine Color Bright Yellow Stool Size Small Stool Color Brown Stool Consistency Formed # Voids 1 1 # Bowel Movements 1 Neck Neck exam: Present full ROM and normal inspection; Absent lymphadenopathy and tenderness Respiratory Respiratory exam: Present normal respiratory exam and CTAB; Absent respiratory distress Cardiovascular Cardiovascular exam: Present normal rate and rhythm, RRR, +S1 and +S2; Absent JVD GI/Abdominal GI/Abdominal exam: Present normal bowel sounds, soft, distended (Mildly distended but with active bowel sounds) and tenderness (Mild incisional tenderness) Extremities Exam Extremities exam: Present full ROM, normal inspection and neurovascular intact Neurological Exam Neurological exam: Present alert, normal gait and reflexes normal Psychiatric Psychiatric exam: Present agitated A/P Assessment and plan (1) Incarcerated incisional hernia: Status: Acute (2) Complete obstruction of small intestine: Status: Acute (3) Hypertension: Status: Acute Qualifiers: Hypertension type: primary hypertension Qualified Code(s): I10 - Essential (primary) hypertension Narrative A/P Narrative: Advance to full liquid diet CBC in a.m. Abdominal x-rays in a.m. Time Spent With Patient Time: Total time spent is greater than 50% in coordination of care (as documented) at patient's floor/unit and/or counseling patient:
[2020-10-02] MEDS: oxyCODONE HCL 5 MG TABLET PO PRN (21:03)
[2020-10-03] MEDS: METOCLOPRAMIDE 10 MG/2 ML VIAL IV SCH ×3 (05:12→18:13)
[2020-10-03 07:28] LABS: Basophils # (Auto) 0.05 K/mcL (0.00-0.20); Basophils % (Auto) 0.6 % (0.0-2.0); Eosinophils # (Auto) 0.27 K/mcL (0.00-0.70); Eosinophils % (Auto) 3.3 % (0.0-7.0); Hematocrit 40.4 % (36.0-48.0); Hemoglobin 13.4 g/dL (12.0-15.0); Lymphocytes # (Auto) 1.23 K/mcL (1.50-4.80); Lymphocytes % (Auto) 14.8 % (15.0-49.0); Mean Cell Volume 93.3 fL (80.0-100.0); Mean Corpuscular HGB Conc 33.2 g/dL (31.0-36.0); Mean Platelet Volume 10.9 fL (7.4-10.4); Monocytes # (Auto) 0.87 K/mcL (0.10-0.90); Monocytes % (Auto) 10.5 % (1.0-12.0); Neutrophils % (Auto) 70.8 % (38.0-78.0); Platelet Count 166 K/mcL (140-440); RBC 4.33 M/mcL (4.00-5.20); Red Cell Distribution Width 12.5 % (11.5-14.5); WBC 8.3 K/mcL (4.5-11.0)
[2020-10-03] MEDS: oxyCODONE HCL 5 MG TABLET PO PRN ×2 (08:20→20:46)
--- NOTE | 2020-10-03 09:51 | XRay Report ---
INDICATION: FOLLOW -UP OF SMALL BOWEL OBSTRUCTION TECHNIQUE: Supine and upright abdomen. COMPARISON: Previous examinations dated 10/02/2020, 10/01/2020, 09/30/2020 FINDINGS:Interval removal of esophagogastric tube. Skin jon remain in place. Bowel gas pattern is markedly improved. There continues to be some small bowel gas but with decreased dilatation. There is gas and fecal material within the colon. There is persistent elevation of the right hemidiaphragm. No pneumatosis. No biliary or portal venous gas. No detectable pneumoperitoneum. 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
--- NOTE | 2020-10-03 11:26 | General Surgery Progress Note ---
SUBJECTIVE Subjective Patient information: Note initiated : 10/03/20 at 11:23 am Service Date, if different from initiated Date: [] Patient: Shanelle Cai 70 y/o F admitted on 09/29/20 for N/V/D. Chief Complaint: [] Principal diagnosis: Incisional hernia with incarcerated small bowel Interval history: Patient continues to improve. She has had copious flatus and bowel movement. She denies nausea. Her oral intake is modified by her gastric sleeve surgery. White blood count 8.3, hemoglobin 13.4, hematocrit 40.4. Constitutional Vitals: Vital Signs Temp Pulse Resp BP Pulse Ox 97.6 F 62 12 146/70 98 10/03/20 08:00 10/03/20 08:00 10/03/20 08:00 10/03/20 08:00 10/03/20 08:00 Period Temp Pulse Resp BP Sys/Mantilla Pulse Ox Last 24 Hr 97.2 F-98.5 F 44-62 12-16 135-167/67-75 93-98 Intake and Output 10/02/20 10/03/20 10/03/20 21:59 05:59 13:59 Intake Total 350 Balance 350 Weight 214 lb 3.2 oz Intake & Output: Intake & Output 10/02/20 10/03/20 10/03/20 21:59 05:59 13:59 Intake Total 350 Balance 350 Weight 214 lb 3.2 oz Intake: Oral 350 Other: Meal Lunch Percent of Meal Consumed 75% Feeding Ability Independent Urine Appearance Clear Urine Color Bright Yellow Urine Odor Normal Stool Size Small Stool Consistency Soft Formed # Voids 2 ENT ENT exam: Present mucous membranes moist, normal exam and normal oropharynx Neck Neck exam: Present full ROM and normal inspection; Absent lymphadenopathy and tenderness Respiratory Respiratory exam: Present normal respiratory exam and CTAB; Absent respiratory distress Cardiovascular Cardiovascular exam: Present normal rate and rhythm, RRR, +S1 and +S2; Absent JVD GI/Abdominal GI/Abdominal exam: Present normal bowel sounds, soft, distended (Mildly distended but with active bowel sounds) and tenderness (Mild incisional tenderness) Extremities Exam Extremities exam: Present full ROM, normal inspection and neurovascular intact Neurological Exam Neurological exam: Present alert, normal gait and reflexes normal Psychiatric Psychiatric exam: Present normal affect and normal mood A/P Assessment and plan (1) Complete obstruction of small intestine: Status: Acute (2) Incarcerated incisional hernia: Status: Acute (3) Hypertension: Status: Acute Qualifiers: Hypertension type: primary hypertension Qualified Code(s): I10 - Essential (primary) hypertension Narrative A/P Narrative: Patient is clinically stable. X-rays show significant reduction in small bowel gas. Diet is advanced to regular diet as tolerated Time Spent With Patient Time: Total time spent is greater than 50% in coordination of care (as documented) at patient's floor/unit and/or counseling patient:
[2020-10-03] MEDS: METOCLOPRAMIDE 10 MG TABLET PO SCH ×2 (18:13→20:46)
[2020-10-04] MEDS: METOCLOPRAMIDE 10 MG TABLET PO SCH ×3 (08:08→17:06)
[2020-10-04] MEDS: oxyCODONE HCL 5 MG TABLET PO PRN (09:20)
--- NOTE | 2020-10-04 16:03 | Discharge Summary ---
Discharge Provider Provider Patient information: Note initiated : 10/04/20 at 3:56 pm Service Date, if different from initiated Date: [] Patient: Shanelle Cai 70 y/o F admitted on 09/29/20 for N/V/D. Chief Complaint: [] Date of admission: 09/29/20 11:07 Discharge date: 10/04/20 Primary care physician: Angela Prado Admitting clinician: Enrrique Canseco Attending physician on admission: Sakshi Canseco Consults: 09/29/20 Consult to Physician [CONS] Stat Comment: Consulting Provider: Enrrique Canseco Reason For Exam: Physician to Consult Attending physician on discharge: Enrrique Canseco Discharging clinician: Enrrique Canseco COURSE Hospital Course Hospital course: 70-year-old female admitted with acute abdominal pain nausea and vomiting. Evaluation revealed an incarcerated small bowel loop and incarcerated omentum into midline defects. She had emergency laparotomy with reduction of the incarcerated viscera. The small bowel was congested but was not ischemic. There was a large amount of fluid in the hernia sac so mesh was not placed. The hernia was closed with interrupted [id number] #1 Prolene. Patient had slow return of intestinal function but is now having regular bowel movements and tolerating regular diet. She is clinically stable and is discharged home with plans for follow-up in the office in 10 days. Discharge diagnosis: Incarcerated incisional hernia Secondary discharge diagnosis: Small bowel obstruction due to incarcerated hernia Reason for admission: Small bowel obstruction due to incarcerated hernia Procedures: Exploratory laparotomy with incisional hernia repair Pertinent studies/significant findings: CT of abdomen and pelvis with contrast Complications: None Time Spent with Patient Time attestation: Total time spent providing and/or coordinating discharge services: Physical Examination Vital Signs Vital signs: Temp Pulse Resp BP Pulse Ox 96.0 F L 56 L 14 148/73 95 10/04/20 12:00 10/04/20 12:00 10/04/20 12:00 10/04/20 12:00 10/04/20 12:00 General physical appearance General physical exam: well developed, well nourished, moderate pain and obese Eyes Eye exam: PERRL and normal ocular movement ENT ENT exam: normal mucosa and no congestion Head Head exam IM: Present atraumatic, normal inspection and normocephalic Neck Neck exam: no masses, trachea midline, no lymphadenopathy and no venous distension Cardiovascular Cardiovascular exam IM: Present normal rate and rhythm, RRR, +S1, +S2 and tachycardia; Absent JVD Respiratory Respiratory exam: normal expansion, normal respiratory effort and clear to auscultation Abdomen Abdomen: Present soft and tender (Mild incisional tenderness; incision is healing nicely) Integumentary Integumentary: Present no rash, no growths and no abnormal pigmentation Neurologic Neurologic: Present normal coordination and normal sensation Psychiatric Psychiatric: Present oriented to time, oriented to person, oriented to place, speech is normal and memory intact Discharge Plan Patient/Caregiver Discharge Instructions Activity: increase activity as tolerated Diet: Regular Diet Prescriptions: New oxycodone-acetaminophen [Endocet] 10-325 mg Tablet 1 tab PO Q4H PRN (Reason: Pain) Qty: 30 RF: 0 Continued cyanocobalamin (vitamin B-12) [Vitamin B-12] 500 mcg Tablet 500 mcg PO DAILY RF: 0 losartan 25 mg Tablet 25 mg PO QDAY RF: 0 ibuprofen 200 mg Tablet 200 mg PO Q6H PRN (Reason: Pain) RF: 0 calcium carbonate-vitamin D2 600 mg calcium- 200 unit Tablet 1 tab PO DAILY RF: 0 Flintstones Complete Tablet,Chewable 2 tab PO DAILY RF: 0 Follow Up Plan Follow up with: Angela Prado MD [Primary Care Provider] - Enrrique Canseco MD [Physician] - Patient Disposition: Home, Self-Care Prognosis: Good Rehab Potential: Good I certify that the patient requires SNF services: No Overall status at discharge: patient is progressing back to baseline Discharge Orders: Discharge Order (Routine); Ordered 10/04/20 Ordered By: Enrrique Canseco Pending Pending Pending: Resuscitation Status Resuscitate (Full Code) Diet Regular Diet Start ThuOct 03 1135 Hydromorphone HCl (Hydromorphone 1 Mg/Ml Syringe) 1 mg IV Q2HP PRN; Protocol PRN Reason: Per Pain Protocol Last Admin: 10/02/20 09:58 Dose: 1 mg Documented by: Admin: 10/02/20 02:58 Dose: 1 mg Documented by: Admin: 10/01/20 18:01 Dose: 1 mg Documented by: [email or web address] Metoclopramide HCl (Metoclopramide 10 Mg Tablet) 10 mg PO [facility] Last Admin: 10/04/20 11:57 Dose: 10 mg Documented by: Admin: 10/04/20 08:08 Dose: 10 mg Documented by: Admin: 10/03/20 20:46 Dose: 10 mg Documented by: Admin: 10/03/20 18:13 Dose: 10 mg Documented by: [email or web address] Oxycodone HCl (Oxycodone Hcl 5 Mg Tablet) 10 mg PO Q4HP PRN; Protocol PRN Reason: Per Pain Protocol Last Admin: 10/04/20 09:20 Dose: 10 mg Documented by: Admin: 10/03/20 20:46 Dose: 10 mg Documented by: Admin: 10/03/20 08:20 Dose: 10 mg Documented by: Admin: 10/02/20 21:03 Dose: 10 mg Documented by: [email or web address] Shift Summary 10/04/20 03:07 Shift Summary by Marie Foreman Primary Diagnosis: Incarcerated sm bowel due to incisional hernia. Registration Status: Day of Hospitalization: 09/29 Date of Surgery (if applicable): 09/29 - Exp lap, supraumbilical hernia repair. Surgical wound: Midline abd inc intact w/ jon & Tegaderm. Pertinent Medical Dx/Issues (may be more than one): s/p gastric sleeve, HTN. Vital Signs with Trends: VS stable on RA. Meds (abo, pain, BP, etc): Roxycodone given @ 2044. Lines/Tubes: SL R hand. Lab/Rad results: Date of last BM: Yesterday, 10/03 Amb status: Ind in rm. Amb in [place] w/ supervision X1 this shift. Recommendations/questions for MD (DC Tamara? DC CM? PICC needed?): Expected date of discharge: Today, 10/04 Discharge Plan (needs, disposition, etc): To return home w/ . Initialized on 10/04/20 03:07 - END OF NOTE
== END 2020-10-04 16:55 | disposition home or self-care (01) | DRG 355 ==
LOC: ED 23:45 → MEDSUR 09-29 11:07 → SUR 09-29 11:07 → MEDSUR 09-29 15:16
PROVIDERS: ADMIT Family Medicine Adult Medicine; ATTEND Family Medicine Adult Medicine